=== PATIENT | male | born 1995 | race Caucasian/White ===

== ENCOUNTER 2018-06-22 12:59 | Emergency (ER) | payer OTHER ==
[~2018-06-22] VITALS: Ht 160 cm; Wt 52.2 kg
[2018-06-22] MEDS ORDERED: MEDROLPACK PO (16:35)
[2018-06-22] MEDS ORDERED: BENADRYL50 MG PO (16:35)
== END 2018-06-22 16:46 | disposition home or self-care (01) ==
LOC: ER 12:59
DX: L50.8 Other urticaria (principal)

== ENCOUNTER 2018-11-07 15:52 | Emergency (ER) | payer OTHER ==
[~2018-11-07] VITALS: Ht 162.6 cm; Wt 54.4 kg
[~2018-11-07 15:52] MED LIST: BENADRYL50 MG PO; MEDROLPACK PO
== END 2018-11-07 21:00 | disposition home or self-care (01) ==
LOC: ER 15:52
DX: B34.9 Viral infection, unspecified (principal)